=== PATIENT | male | born 1930 | race Caucasian/White ===

== ENCOUNTER → 2018-05-02 | Outpatient (CLI) | payer OTHER | LOC: HYPER 06:52 | DX: L89.223 Pressure ulcer of left hip, stage 3 (principal); S41.112A Laceration without foreign body of left upper arm, initial encounter; S51.011A Laceration without foreign body of right elbow, initial encounter; E78.5 Hyperlipidemia, unspecified; E03.9 Hypothyroidism, unspecified; E46 Unspecified protein-calorie malnutrition; G70.00 Myasthenia gravis without (acute) exacerbation; I48.91 Unspecified atrial fibrillation; I10 Essential (primary) hypertension; M85.88 Other specified disorders of bone density and structure, other site; M70.72 Other bursitis of hip, left hip; F41.9 Anxiety disorder, unspecified; Z79.01 Long term (current) use of anticoagulants; Z79.52 Long term (current) use of systemic steroids; Z95.4 Presence of other heart-valve replacement; Z98.49 Cataract extraction status, unspecified eye; W19.XXXA Unspecified fall, initial encounter; Y93.89 Activity, other specified; Y92.89 Other specified places as the place of occurrence of the external cause; Y99.8 Other external cause status ==

== ENCOUNTER → 2018-05-09 | Outpatient (CLI) | payer OTHER | LOC: HYPER 07:03 | DX: L89.223 Pressure ulcer of left hip, stage 3 (principal); S41.112D Laceration without foreign body of left upper arm, subsequent encounter; E78.5 Hyperlipidemia, unspecified; E03.9 Hypothyroidism, unspecified; E46 Unspecified protein-calorie malnutrition; G70.00 Myasthenia gravis without (acute) exacerbation; I48.91 Unspecified atrial fibrillation; I10 Essential (primary) hypertension; M70.72 Other bursitis of hip, left hip; M19.90 Unspecified osteoarthritis, unspecified site; M85.88 Other specified disorders of bone density and structure, other site; F41.9 Anxiety disorder, unspecified; Z79.01 Long term (current) use of anticoagulants; Z95.4 Presence of other heart-valve replacement; Z79.52 Long term (current) use of systemic steroids; W19.XXXD Unspecified fall, subsequent encounter ==

== ENCOUNTER → 2018-05-16 | Outpatient (CLI) | payer OTHER | LOC: HYPER 06:36 | DX: L89.223 Pressure ulcer of left hip, stage 3 (principal); S41.112D Laceration without foreign body of left upper arm, subsequent encounter; E46 Unspecified protein-calorie malnutrition; E03.9 Hypothyroidism, unspecified; E78.5 Hyperlipidemia, unspecified; G70.00 Myasthenia gravis without (acute) exacerbation; I48.91 Unspecified atrial fibrillation; I10 Essential (primary) hypertension; M85.88 Other specified disorders of bone density and structure, other site; M70.72 Other bursitis of hip, left hip; Z95.4 Presence of other heart-valve replacement; Z79.01 Long term (current) use of anticoagulants; Z79.52 Long term (current) use of systemic steroids; W19.XXXD Unspecified fall, subsequent encounter ==

== ENCOUNTER → 2018-05-23 | Outpatient (CLI) | payer OTHER | LOC: HYPER 06:57 | DX: L89.223 Pressure ulcer of left hip, stage 3 (principal); S41.112D Laceration without foreign body of left upper arm, subsequent encounter; S41.111A Laceration without foreign body of right upper arm, initial encounter; E46 Unspecified protein-calorie malnutrition; E78.5 Hyperlipidemia, unspecified; E03.9 Hypothyroidism, unspecified; I48.91 Unspecified atrial fibrillation; I10 Essential (primary) hypertension; G70.00 Myasthenia gravis without (acute) exacerbation; M85.88 Other specified disorders of bone density and structure, other site; Z79.01 Long term (current) use of anticoagulants; Z79.52 Long term (current) use of systemic steroids; Z95.4 Presence of other heart-valve replacement; W19.XXXA Unspecified fall, initial encounter; Y93.89 Activity, other specified; Y92.89 Other specified places as the place of occurrence of the external cause; Y99.8 Other external cause status ==

== ENCOUNTER → 2018-06-06 | Outpatient (CLI) | payer OTHER | LOC: HYPER 07:21 | DX: L89.223 Pressure ulcer of left hip, stage 3 (principal); S41.112D Laceration without foreign body of left upper arm, subsequent encounter; S41.111D Laceration without foreign body of right upper arm, subsequent encounter; M70.72 Other bursitis of hip, left hip; E46 Unspecified protein-calorie malnutrition; E78.5 Hyperlipidemia, unspecified; I48.91 Unspecified atrial fibrillation; I10 Essential (primary) hypertension; M85.80 Other specified disorders of bone density and structure, unspecified site; E55.9 Vitamin D deficiency, unspecified; F41.9 Anxiety disorder, unspecified; Z79.01 Long term (current) use of anticoagulants; Z79.52 Long term (current) use of systemic steroids; X58.XXXD Exposure to other specified factors, subsequent encounter ==

== ENCOUNTER → 2018-06-20 | Outpatient (CLI) | payer OTHER | LOC: HYPER 07:08 | DX: L89.223 Pressure ulcer of left hip, stage 3 (principal); S41.112D Laceration without foreign body of left upper arm, subsequent encounter; S50.311D Abrasion of right elbow, subsequent encounter; E78.5 Hyperlipidemia, unspecified; E46 Unspecified protein-calorie malnutrition; E03.9 Hypothyroidism, unspecified; G70.00 Myasthenia gravis without (acute) exacerbation; I48.91 Unspecified atrial fibrillation; I10 Essential (primary) hypertension; M85.88 Other specified disorders of bone density and structure, other site; Z95.4 Presence of other heart-valve replacement; Z79.01 Long term (current) use of anticoagulants; Z79.52 Long term (current) use of systemic steroids; W19.XXXD Unspecified fall, subsequent encounter ==

== ENCOUNTER → 2018-07-04 | Outpatient (CLI) | payer OTHER | LOC: HYPER 06:47 | DX: L89.223 Pressure ulcer of left hip, stage 3 (principal); S41.112D Laceration without foreign body of left upper arm, subsequent encounter; S50.311D Abrasion of right elbow, subsequent encounter; I10 Essential (primary) hypertension; E46 Unspecified protein-calorie malnutrition; E78.5 Hyperlipidemia, unspecified; I48.91 Unspecified atrial fibrillation; M70.72 Other bursitis of hip, left hip; M85.80 Other specified disorders of bone density and structure, unspecified site; Z79.01 Long term (current) use of anticoagulants; Z79.52 Long term (current) use of systemic steroids; X58.XXXD Exposure to other specified factors, subsequent encounter ==

== ENCOUNTER → 2018-07-18 | Outpatient (CLI) | payer OTHER | LOC: HYPER 07:48 | DX: L89.223 Pressure ulcer of left hip, stage 3 (principal); S41.112D Laceration without foreign body of left upper arm, subsequent encounter; E46 Unspecified protein-calorie malnutrition; E78.5 Hyperlipidemia, unspecified; I48.91 Unspecified atrial fibrillation; I10 Essential (primary) hypertension; M85.80 Other specified disorders of bone density and structure, unspecified site; M70.72 Other bursitis of hip, left hip; Z79.01 Long term (current) use of anticoagulants; Z79.52 Long term (current) use of systemic steroids; X58.XXXD Exposure to other specified factors, subsequent encounter ==

== ENCOUNTER → 2018-08-08 | Outpatient (CLI) | payer OTHER | LOC: HYPER 06:57 | DX: S41.112D Laceration without foreign body of left upper arm, subsequent encounter (principal); L89.223 Pressure ulcer of left hip, stage 3; E78.5 Hyperlipidemia, unspecified; E03.9 Hypothyroidism, unspecified; E46 Unspecified protein-calorie malnutrition; G70.00 Myasthenia gravis without (acute) exacerbation; I48.91 Unspecified atrial fibrillation; I10 Essential (primary) hypertension; M70.72 Other bursitis of hip, left hip; M85.80 Other specified disorders of bone density and structure, unspecified site; Z95.4 Presence of other heart-valve replacement; Z79.52 Long term (current) use of systemic steroids; Z79.01 Long term (current) use of anticoagulants; W19.XXXD Unspecified fall, subsequent encounter ==